=== PATIENT | female | born 1985 | race African-American/Black ===

== ENCOUNTER 2017-02-09 10:33 | Inpatient (IN) | payer MEDICAID ==
[~2017-02-09] VITALS: Ht 162.6 cm; Wt 84.3 kg
[2017-02-09] MEDS ORDERED: HALOPERIDOL LACTATE 5 MG/ML VIAL IM ONE (12:00)
[2017-02-09] MEDS ORDERED: LORazepam 2 MG/ML VIAL IM ONE (12:00)
[2017-02-09] MEDS ORDERED: DiphenhydrAMINE HCL 50 MG/ML VIAL IM ONE (12:00)
[2017-02-09] MEDS ORDERED: HALOPERIDOL 5 MG TABLET PO PRN (12:45)
[2017-02-09] MEDS ORDERED: ZOLPIDEM TARTRATE 10 MG TABLET PO PRN (12:45)
[2017-02-09 14:58] VITALS: BP 109/53
[2017-02-10 08:48] VITALS: BP 129/81
[2017-02-10] MEDS: RisperiDONE 3 MG TABLET PO SCH ×2 (09:46→17:00)
[2017-02-10] MEDS ORDERED: CloNIDine HCL 0.1 MG TABLET PO PRN (10:00)
[2017-02-10] MEDS ORDERED: PETROLATUM,WHITE 71 GM JELLY TP PRN (10:00)
[2017-02-10] MEDS ORDERED: MAGNESIUM HYDROXIDE SUSPENSION 30 ML UDCUP PO PRN (10:00)
[2017-02-10] MEDS ORDERED: BACITRACIN 28.4 GM OINTMENT TP PRN (10:00)
[2017-02-10] MEDS ORDERED: MAG HYDROX/AL HYDROX/SIMETH ES 30 ML SUSPENSION UDCUP PO PRN (10:00)
[2017-02-10] MEDS ORDERED: IBUPROFEN 600 MG TABLET PO PRN (10:00)
[2017-02-10] MEDS ORDERED: LOPERAMIDE HCL 2 MG CAPSULE PO PRN (10:00)
[2017-02-10] MEDS ORDERED: ONDANSETRON HCL 4 MG TABLET PO PRN (10:00)
[2017-02-10] MEDS ORDERED: ACETAMINOPHEN 325 MG TABLET PO PRN (10:00)
[2017-02-10] MEDS ORDERED: ALBUTEROL SULFATE HFA 90 MCG/PUFF 8 GM INHALER IH PRN (10:00)
[2017-02-10] MEDS ORDERED: BENZOCAINE/MENTHOL LOZENGE MM PRN (10:00)
[2017-02-10 16:16] VITALS: BP 107/65
[2017-02-11 05:36] VITALS: BP 134/83
[2017-02-11] MEDS: RisperiDONE 3 MG TABLET PO SCH ×3 (08:44→17:00)
[2017-02-11 09:41] LABS: CHOL/HDL RATIO 3.3 (3.9-5.7); THYROID STIMULATING HORMONE 1.49 uIU/mL (0.36-3.74)
[2017-02-11 10:02] VITALS: BP 150/89
[2017-02-11 16:30] VITALS: BP 112/81
[2017-02-11] MEDS: GuaiFENesin/D-METHORPHAN [SUGAR-FREE] 200-20MG/10 ML SYRUP UDCUP PO SCH (20:19)
[2017-02-12 06:32] VITALS: BP 126/83
[2017-02-12 08:25] VITALS: BP 117/64
[2017-02-12] MEDS: GuaiFENesin/D-METHORPHAN [SUGAR-FREE] 200-20MG/10 ML SYRUP UDCUP PO SCH ×4 (10:31→20:21)
[2017-02-12] MEDS: RisperiDONE 3 MG TABLET PO SCH ×2 (10:31→16:05)
[2017-02-12] MEDS ORDERED: LORazepam 2 MG/ML VIAL IM ONE (10:45)
[2017-02-12] MEDS ORDERED: DiphenhydrAMINE HCL 50 MG/ML VIAL IM ONE (10:45)
[2017-02-12] MEDS ORDERED: HALOPERIDOL LACTATE 5 MG/ML VIAL IM ONE (10:45)
[2017-02-12] MEDS ORDERED: LORazepam 2 MG/ML VIAL ONE (10:45)
[2017-02-12] MEDS ORDERED: DiphenhydrAMINE HCL 50 MG/ML VIAL ONE (10:46)
[2017-02-12] MEDS ORDERED: HALOPERIDOL LACTATE 5 MG/ML VIAL ONE (10:46)
[2017-02-13 06:37] VITALS: BP 111/84
[2017-02-13 08:11] VITALS: BP 97/65
[2017-02-13] MEDS: GuaiFENesin/D-METHORPHAN [SUGAR-FREE] 200-20MG/10 ML SYRUP UDCUP PO SCH ×4 (09:40→20:08)
[2017-02-13] MEDS: RisperiDONE 3 MG TABLET PO SCH ×2 (09:40→16:19)
[2017-02-13] MEDS: LORazepam 2 MG TABLET PO PRN ×2 (09:46→16:19)
[2017-02-13 16:32] VITALS: BP 121/77
[2017-02-14 06:22] VITALS: BP 109/71
[2017-02-14 09:10] VITALS: BP 121/72
[2017-02-14] MEDS: GuaiFENesin/D-METHORPHAN [SUGAR-FREE] 200-20MG/10 ML SYRUP UDCUP PO SCH ×4 (09:38→20:31)
[2017-02-14] MEDS: LORazepam 2 MG TABLET PO PRN ×2 (09:38→16:21)
[2017-02-14] MEDS: RisperiDONE 3 MG TABLET PO SCH ×2 (09:38→16:21)
[2017-02-14 16:48] VITALS: BP 128/89
[2017-02-14] MEDS ORDERED: RISP3 PO (23:45)
[2017-02-15] MEDS ORDERED: RISP3 PO (01:23)
[2017-02-15 06:14] VITALS: BP 127/69
== END 2017-02-15 07:32 | disposition home or self-care (01) | DRG 750 ==
LOC: EEVIPCON 10:36 → EMS 10:36 → B3A 13:33
PROVIDERS: ADMIT Psychiatry & Neurology Psychiatry; ATTEND Psychiatry & Neurology Psychiatry
DX: F20.0 Paranoid schizophrenia (principal); F29 Unspecified psychosis not due to a substance or known physiological condition; R45.851 Suicidal ideations; Z91.14 Patient's other noncompliance with medication regimen; F32.9 Major depressive disorder, single episode, unspecified; E66.9 Obesity, unspecified; G47.00 Insomnia, unspecified; K59.00 Constipation, unspecified; Z59.0 Homelessness; R45.1 Restlessness and agitation; Z68.31 Body mass index [BMI] 31.0-31.9, adult
CPT/HCPCS: 16000; 84436; 84439; 84443; 99285; J1200; J1630; J2060

== ENCOUNTER 2017-02-20 15:17 | Emergency (ER) | payer MEDICAID ==
[~2017-02-20] VITALS: Ht 157.5 cm; Wt 84.0 kg
[~2017-02-20 15:17] MED LIST: RISP3 PO
[2017-02-20] MEDS ORDERED: LURA40 PO (15:26)
[2017-02-20 15:44] LABS: BASOPHILS % (AUTO) 0.2 % (0.0-2.0); EOSINOPHILS % (AUTO) 1.8 % (1.0-6.0); HEMATOCRIT 41.1 % (36-46); HEMOGLOBIN 13.9 g/dL (12.0-16.0); LYMPHOCYTES # (AUTO) 1.7 K/uL (1.0-4.8); LYMPHOCYTES % (AUTO) 17.8 % (22.0-44.0); MEAN CORPUSCULAR HEMOGLOBIN 30.1 pg (26.0-34.0); MEAN CORPUSCULAR HGB CONC 33.9 G/dL (31.0-37.0); MEAN CORPUSCULAR VOLUME 89 fL (80-100); MONOCYTES # (AUTO) 0.3 K/uL (0.1-1.0); MONOCYTES % (AUTO) 3.6 % (2.0-9.0); NEUTROPHILS # (AUTO) 7.2 K/uL (1.8-7.7); NEUTROPHILS % (AUTO) 76.6 % (40.0-70.0); PLATELET COUNT (AUTO) 413 K/uL (150-450); RED BLOOD CELL COUNT(AUTO) 4.62 MIL/uL (4.00-5.20); RED CELL DISTRIBUTION WIDTH 13.7 % (11.5-14.5); WHITE BLOOD COUNT (AUTO) 9.5 K/uL (4.5-11.0)
[2017-02-20 15:59] LABS: ALANINE AMINOTRANSFERASE 44 U/L (12-78); ALBUMIN 3.8 g/dL (3.4-5.0); ANION GAP 8 mmol/L (8-16); ASPARTATE AMINOTRANSFERASE 17 U/L (15-37); BILIRUBIN,TOTAL 0.3 mg/dL (0.1-1.0); CALCIUM, TOTAL 9.7 mg/dL (8.8-10.5); CARBON DIOXIDE 29 mmol/L (22-29); CHLORIDE 102 mmol/L (98-107); CREATININE 0.69 mg/dL (0.60-1.30); GLOMERULAR FILTR. RATE CALC > 60 mL/min (>60); POTASSIUM 4.1 mmol/L (3.5-5.1); SODIUM SERUM 139 mmol/L (136-145); TOTAL PROTEIN, SERUM 8.6 g/dL (6.4-8.2); UREA NITROGEN, BLOOD 9 mg/dL (7-18)
[2017-02-20 17:15] VITALS: BP 122/71
== END 2017-02-20 17:22 | disposition home or self-care (01) ==
LOC: EMS 15:18
DX: F43.0 Acute stress reaction (principal); F32.9 Major depressive disorder, single episode, unspecified; F20.9 Schizophrenia, unspecified; F12.90 Cannabis use, unspecified, uncomplicated
CPT/HCPCS: 36415; 80053; 80307; 84703; 85025; 99284; G0480